=== PATIENT | female | born 2000 | race African-American/Black ===

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

== ENCOUNTER 2021-04-09 22:38 | Emergency (ER) | payer MEDICAID ==
[~2021-04-09] VITALS: Ht 162.6 cm; Wt 59.0 kg
[2021-04-09] MEDS ORDERED: IBUPROFEN 600MG TABLET PO STA (23:25)
[2021-04-09] MEDS ORDERED: PENICILLIN G BENZATHINE 1,200,000 UNITS/2ML SYR IM ONE (23:30)
[2021-04-09] MEDS ORDERED: IBUP-2029 PO (23:44)
[2021-04-09] MEDS ORDERED: AMOX-494 PO (23:44)
[2021-04-09 23:52] VITALS: BP 112/67
== END 2021-04-10 00:32 | disposition home or self-care (01) ==
LOC: ER 22:38
DX: J02.9 Acute pharyngitis, unspecified (principal)
CPT/HCPCS: 81025; 96372; 99283; J0561; Z7610